=== PATIENT | female | born 1980 | race Two or more races ===

== ENCOUNTER 2022-10-25 15:20 | Emergency (ER) | payer OTHER ==
[~2022-10-25] VITALS: Ht 167.6 cm; Wt 61.2 kg
[2022-10-25] MEDS ORDERED: DILTIAZEM 24HR240 MG PO (16:00)
[2022-10-25] MEDS ORDERED: MONTELUKAST SOD10 MG PO (16:01)
[2022-10-25] MEDS ORDERED: DESLORATADINE5 MG PO (16:01)
[2022-10-25] MEDS ORDERED: HYDROCHLOROTH12.5 MG PO (16:01)
== END 2022-10-25 20:09 | disposition home or self-care (01) ==
LOC: ER 15:20
DX: N30.90 Cystitis, unspecified without hematuria (principal)

== ENCOUNTER 2023-07-13 06:30 | Day surgery (SDC) | payer OTHER ==
[2023-07-06 09:28] LABS: PH,URINE 7.5 (5.0-8.0); URINE APPEARANCE Cloudy; URINE BILIRRUBIN Negative (NEGATIVE); URINE BLOOD Negative; URINE COLOR Yellow; URINE GLUCOSE Negative (NEGATIVE); URINE LEUKOCYTE Negative; URINE NITRATE Negative; URINE PROTEIN Negative (NEGATIVE)
[2023-07-06 09:32] LABS: URINE BACTERIA 287.2 uL (0.0-1933); URINE EPITHELIAL CELLS 24.4 uL (0.0-38.8); URINE RBC 35.6 uL (0.0-20.8); URINE WBC 3.7 uL (0.0-23.2)
[2023-07-06 09:35] LABS: HEMATOCRIT 35.5 % (36.0-45.00); HEMOGLOBIN 12.5 g/dL (12.0-15.00); MEAN CELL VOLUME 81.8 fL (80.00-100.00); MEAN CORPUSCULAR HEMOGLOBIN 28.8 pg (27.00-32.0); MEAN CORPUSCULAR HGB CONC 35.2 g/dl (32.0-36.0); PLATELET COUNT 286 K/uL (150-450); RED BLOOD COUNT 4.34 M/uL (4.00-6.00); RED CELL DISTRIBUTION WIDTH 13.1 % (11.5-14.5)
[2023-07-06 09:50] LABS: ALBUMIN 3.8 gm/dL (3.4-5.0); BILIRUBIN TOTAL 0.52 mg/dL (0.3-1.2); CREATININE SERUM 0.62 mg/dL (0.55-1.02); GFR 105.06; GLOBULINA 4.2 G/DL (2.4-3.5); POTASSIUM 3.58 mEq/L (3.5-5.1)
[2023-07-06 11:38] LABS: INR 0.96; PARTIAL THROMBOPLASTIN TIME 25.5 SECONDS (22.0-34.0); PROTHROMBIN TIME 10.1 SECONDS (9.0-11.5)
[~2023-07-13] VITALS: Ht 160 cm; Wt 79.8 kg
[~2023-07-13 06:30] MED LIST: DESLORATADINE5 MG PO; DILTIAZEM 24HR240 MG PO; DOLOGESIC 500-1 EACH PO; HYDROCHLOROTH12.5 MG PO; MONTELUKAST SOD10 MG PO; ONDANSETRON ODT4 MG PO; PROTONIX40 MG PO
[2023-07-13] MEDS ORDERED: CEFAZOLIN SODIUM 1,000 MG VIAL IV ONE (09:45)
== END 2023-07-13 13:00 | disposition home or self-care (01) ==
LOC: CIR.AMB 06:30
PROVIDERS: ATTEND Surgery
DX: K80.10 Calculus of gallbladder with chronic cholecystitis without obstruction (principal)